=== PATIENT | male | born 2005 | race Caucasian/White ===

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

== ENCOUNTER 2024-02-10 08:38 | Emergency (ER) | payer OTHER ==
--- NOTE | 2024-02-10 09:05 | ED ---
Extremity Problem HPI - General Chief complaint: Extremity Problem,Nontraumatic Stated complaint: R leg pain Time Seen by Provider: 02/10/24 08:43 Source: patient, RN notes reviewed Mode of arrival: ambulatory Limitations: no limitations - History of Present Illness Initial comments: 18-year-old male presents emergency department complaint of right leg pain. 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 Patient states he never followed up for removal of his hardware he states he suddenly started having lower right leg pain, calf pain states he may have injured it running around the house but is not sure denies any hip pain or ankle pain. - Related Data Home Medications Medication Instructions Recorded Confirmed Cetirizine HCl [Zyrtec] 10 mg PO DAILY 06/08/19 06/08/19 Dexmethylphenidate HCl [Focalin Xr] 25 mg PO QAM 06/08/19 06/08/19 Allergies Allergy/AdvReac Type Severity Reaction Status Date / Time amoxicillin Allergy Unknown Verified 07/25/22 04:04 Childhood Review of Systems ROS Statement: Those systems with pertinent positive or pertinent negative responses have been documented in the HPI. ROS Other: All systems not noted in ROS Statement are negative. 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 Absent: scleral icterus, conjunctival injection, periorbital swelling ENT exam: Present: normal exam, normal oropharynx, mucous membranes moist Neck exam: Present: normal inspection, full ROM. Absent: tenderness, meningismus, lymphadenopathy Respiratory exam: Present: normal lung sounds bilaterally. Absent: respiratory distress, wheezes, rales, rhonchi, stridor Cardiovascular Exam: Present: regular rate, normal rhythm, normal heart sounds. Absent: systolic murmur, diastolic murmur, rubs, gallop, clicks Extremities exam: Present: other (Mild right calf tenderness, old surgical scar noted) Course Vital Signs 02/10/24 08:39 Temperature 97.8 F Pulse Rate 77 Respiratory 18 Rate Blood Pressure 130/70 O2 Sat by Pulse 99 Oximetry Medical Decision Making - Medical Decision Making Was pt. sent in by a medical professional or institution (JERONIMO Ardon, [employer], urgent care, hospital, or senior living...) When possible be specific @ -No Did you speak to anyone other than the patient for history (EMS, parent, family, police, friend...)? What history was obtained from this source @ -No Did you review nursing and triage notes (agree or disagree)? Why? @ -I reviewed and agree with nursing and triage notes Were old charts reviewed (outside hosp., previous admission, EMS record, old EKG, old radiological studies, urgent care reports/EKG's, senior living records)? Report findings @ -No old charts were reviewed Differential Diagnosis (chest pain, altered mental status, abdominal pain women, abdominal pain men, vaginal bleeding, weakness, fever, dyspnea, syncope, headache, dizziness, GI bleed, back pain, seizure, CVA, palpatations, mental health, musculoskeletal)? @ -Leg pain, DVT, hardware rejection, hardware loosening EKG interpreted by me (3pts min.). @ -None X-rays interpreted by me (1pt min.). @ -X-ray tib-fib showing stable hardware congenital deformities CT interpreted by me (1pt min.). @ -None done U/S interpreted by me (1pt. min.). @ -Ultrasound venous Doppler of her right leg no acute fracture What testing was considered but not performed or refused? (CT, X-rays, U/S, labs)? Why? @ -None What meds were considered but not given or refused? Why? @ -None Did you discuss the management of the patient with other professionals (professionals i.e. JERONIMO Ardon, [employer] HOUSE WORKER, lab, RT, psych nurse, rn social services, doorkeeper, teacher, safety security officer, caser)? Give summary @ -No Was smoking cessation discussed for >3mins.? @ -No Was critical care preformed (if so, how long)? @ -No Were there social determinants of health that impacted care today? How? (Homelessness, low income, unemployed, alcoholism, drug addiction, transportation, low edu. Level, literacy, decrease access to med. care, care home, rehab)? @ -No Was there de-escalation of care discussed even if they declined (Discuss DNR or withdrawal of care, Hospice)? DNR status @ -No What co-morbidities impacted this encounter? (DM, HTN, Smoking, COPD, CAD, Cancer, CVA, ARF, Chemo, Hep., AIDS, mental health diagnosis, sleep apnea, morbid obesity)? @ -None Was patient admitted / discharged? Hospital course, mention meds given and route, prescriptions, significant lab abnormalities, going to OR and other pertinent info. @ -Discharge patient's x-rays and ultrasound show no acute process. Patient will follow-up with orthopedics secondary to his hardware and may be causing his symptoms. Patient is neurovascular intact with equal pedal pulses. Undiagnosed new problem with uncertain prognosis? @ -No Drug Therapy requiring intensive monitoring for toxicity (Heparin, Nitro, Insulin, Cardizem)? @ -No Were any procedures done? @ -No Diagnosis/symptom? @ -Right leg pain Acute, or Chronic, or Acute on Chronic? @ -Acute Uncomplicated (without systemic symptoms) or Complicated (systemic symptoms)? @ -Uncomplicated Side effects of treatment? @ -No Exacerbation, Progression, or Severe Exacerbation? @ -No Poses a threat to life or bodily function? How? (Chest pain, [place], [place], pneumonia, PE, COPD, DKA, ARF, appy, cholecystitis, CVA, Diverticulitis, Homicidal, Suicidal, threat to staff... and all critical care pts) @ -No Disposition Clinical Impression: Right leg pain Disposition: HOME SELF-CARE Condition: Stable Instructions (If sedation given, give patient instructions): Leg Pain (ED) Additional Instructions: Please return to the Emergency Department if symptoms worsen or any other concerns. Is patient prescribed a controlled substance at d/c from ED?: No Referrals: None,Stated [Primary Care Provider] - 1-2 days Kaushal Crawford MD [Medical Doctor] - 1-2 days Time of Disposition: 10:38
[2024-02-10] MEDS: KETOROLAC 15 MG/ML 1 ML VIAL IM STA (09:17)
[2024-02-10 09:31] VITALS: RESP 18
--- NOTE | 2024-02-10 10:11 | XR ---
EXAMINATION TYPE: XR tibia fibula 2 views RT DATE OF EXAM: 02/10/2024 COMPARISON: NONE HISTORY: 18-year-old male medial aspect pain distal lower leg TECHNIQUE: 2 views FINDINGS: Patient with previous plate and screw fixation partially visualized lateral distal femoral metadiaphysis. Also, lateral proximal tibial metaphysis. Also along the medial tibial shaft. Chronic appearing, congenital bony deformities with foreshortening. No acute fracture, subluxation, dislocati on is seen. 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 Correlate for any known diagnosis. Multiple previous plate and screw fixation including the distal femur, proximal tibia, and mid tibia. No acute osseous abnormality seen.
--- NOTE | 2024-02-10 10:13 | US ---
EXAMINATION TYPE: US venous doppler duplex LE RT DATE OF EXAM: 02/10/2024 9:39 AM COMPARISON: NONE CLINICAL INDICATION: Male, 18 years old with history of pain; pain and swelling to right leg for a fe w days, no h/o DVT, h/o dwarfism SIDE PERFORMED: Right TECHNIQUE: The lower extremity deep venous system is examined utilizing real time linear array sonog lenora with graded compression, doppler sonography and color-flow sonography. 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
[2024-02-10] MEDS: ACET/COD 300 MG/30 MG STARTER PACK 6 TAB BTL PO STA (10:45)
[2024-02-10 11:28] VITALS: BP 128/74; PULSE 72; TEMP 98
== END 2024-02-10 10:50 | disposition home or self-care (01) ==
LOC: EC 08:38
DX: M79.604 Pain in right leg (principal); F12.90 Cannabis use, unspecified, uncomplicated; Z88.0 Allergy status to penicillin
CPT/HCPCS: 73590; 93971; 99283; 96372; J1885